=== PATIENT | female | born 1950 | race Caucasian/White ===

== ENCOUNTER 2022-10-25 11:47 | Emergency (ER) | payer MEDICARE ==
[~2022-10-25] VITALS: Ht 157.5 cm; Wt 74.0 kg
[2022-10-25] VITALS (13 sets, daily range): BP systolic 108–146; BP diastolic 59–81
[~2022-10-25 11:47] MED LIST: ATORVASTATIN CA40 MG PO; CALCIUM1250 MG PO; D3 MAXIMUM5000 UNI1 PO; FLUOXETINE HCL40 MG PO; FORTEO; JUICE PLUS; LATANOPROST0.005 % OP; MAGNESIUM; ZESTRIL10 M1 PO; [UNRECOGNIZED DRUG - OTHER]; [UNRECOGNIZED DRUG - OTHER] PO
[2022-10-25 12:49] LABS: BASO% 0.3 % (0-3); EOS% 1.7 % (0-8); HEMATOCRIT 36.5 % (37.0-47.0); HEMOGLOBIN 11.4 g/dl (12.0-16.0); IMMATURE GRANULOCYTES 0.2 % (0.0-5.0); MEAN CELL VOLUME 96.8 fL CALC (80.0-100.0); MEAN CORPUSCULAR HGB 30.2 pG CALC (26.0-32.0); MEAN CORPUSCULAR HGB CONC 31.2 g/dL CAL (32.0-36.0); MONO% 13.8 % (2-13); NEUT# 3.82 thou/uL (2.00-7.15); RED BLOOD COUNT 3.77 mill/uL (4.20-5.60); RED CELL DISTRI WIDTH 12.9 % (11.5-15.5)
[2022-10-25 12:54] LABS: GFR FOR AFR.AMER. > 60 ML/MIN (>=60 (CALC)); GFR OTHER RACES > 60 ML/MIN (>=60 (CALC))
[2022-10-25 13:20] LABS: ALKALINE PHOSPHATASE 86 u/l (38-126); ANION GAP 11 (6-22 (CALC)); BILIRUBIN, TOTAL 0.3 mg/dL (0.02-1.3); BUN 14 mg/dL (8-23); BUN/CREATININE RATIO 22 (12-20 (CALC)); CARBON DIOXIDE 25 mmol/l (22-30); CHLORIDE 105 mmol/l (95-108); CREATININE 0.7 mg/dL (0.5-1.0); LIPASE 67 u/l (23-300); SGOT/AST 27 u/l (9-36); SODIUM 138 mmol/l (137-146); TOTAL PROTEIN 6.3 g/dL (6.3-8.2)
[2022-10-25] MEDS ORDERED: TRAMADOL HYDROC50 M1 PO (15:50)
[2022-10-25] MEDS ORDERED: ZOFRAN4 MG/TAB PO (15:53)
== END 2022-10-25 16:20 | disposition home or self-care (01) ==
LOC: ED 11:47
PROVIDERS: Family Medicine
DX: R10.13 Epigastric pain (principal); R10.32 Left lower quadrant pain; K83.8 Other specified diseases of biliary tract; F41.9 Anxiety disorder, unspecified; E78.00 Pure hypercholesterolemia, unspecified
CPT/HCPCS: Q9967